=== PATIENT | female | born 1940 | race Caucasian/White ===

== ENCOUNTER 2019-10-16 22:37 | Emergency (ER) | payer MEDICARE, OTHER ==
[~2019-10-16] VITALS: Ht 162.6 cm; Wt 59.9 kg
[2019-10-16 22:52] VITALS: BP 176/77
[2019-10-16 23:41] LABS: Basophils # (auto) 0 uL; Basophils % (auto) 0.8 % (0.0-2.0); Eosinophils # (auto) 0.1 uL; Eosinophils % (auto) 1.2 % (0.0-7.0); Hematocrit 42.3 % (36.0-46.0); Hemoglobin 14.4 g/dL (12.2-16.2); Lymphocytes # (auto) 1.8 uL; Lymphocytes % (auto) 36.7 % (10.0-50.0); Mean Corpuscular Hemoglobin 31.9 pg (28.0-32.0); Mean Corpuscular Hgb Conc. 33.9 g/dL (32.0-36.0); Monocytes # (auto) 0.4 uL; Monocytes % (auto) 7.7 % (0.0-12.0); Neutrophils # (auto) 2.6 uL; Neutrophils % (auto) 53.6 % (37.0-80.0); Nucleated Red Blood Cells % 0.1 %; Platelet Count (auto) 236 10^3/uL (140-450); Red Cell Distribution Width 13.1 % (11.8-14.3); White Blood Cell 4.8 10^3/uL (4.4-10.8)
[2019-10-17 00:37] LABS: Albumin 4.3 g/dL (3.4-5.0); Calcium 9.9 mg/dL (8.5-10.1); Potassium 3.4 mmol/L (3.5-5.1)
[2019-10-17 00:41] LABS: BUN/Creatinine Ratio 24.1; Bilirubin, Total 0.5 mg/dL (0.2-1.0)
== END 2019-10-17 00:31 | disposition left against medical advice (07) ==
LOC: ER 22:37
DX: I10 Essential (primary) hypertension (principal); Z53.21 Procedure and treatment not carried out due to patient leaving prior to being seen by health care provider
CPT/HCPCS: 36415; 80053; 85025

== ENCOUNTER 2023-11-16 09:21 | Inpatient (IN) | payer MEDICARE ==
[~2023-11-16] VITALS: Ht 162.6 cm; Wt 60.2 kg
[2023-11-16 09:50] LABS: Basophils # (auto) 0 10 ^3/uL (0-0.2); Basophils % (auto) 0.9 % (0.0-2.0); Eosinophils # (auto) 0.1 10 ^3/uL (0-0.8); Eosinophils % (auto) 1.6 % (0.0-7.0); Hematocrit 43.6 % (36.0-46.0); Hemoglobin 14.5 g/dL (12.2-16.2); Lymphocytes # (auto) 1.2 10 ^3/uL (0.4-5.4); Lymphocytes % (auto) 33.7 % (10.0-50.0); Mean Corpuscular Hemoglobin 30.6 pg (28.0-32.0); Mean Corpuscular Hgb Conc. 33.2 g/dL (32.0-36.0); Mean Corpuscular Volume 92.4 fL (80.0-100.0); Monocytes # (auto) 0.3 10 ^3/uL (0-1.3); Monocytes % (auto) 10.1 % (0.0-12.0); Neutrophils # (auto) 1.8 10 ^3/uL (1.6-8.6); Neutrophils % (auto) 53.7 % (37.0-80.0); Nucleated Red Blood Cells % 0.2 %; Red Blood Cells 4.72 10^6/uL (4.0-5.20); White Blood Cell 3.4 10^3/uL (4.4-10.8)
[2023-11-16 10:14] LABS: INR 0.98 (0.9-1.15); Prothrombin Time 10.3 sec (9.3-11.8)
[2023-11-16 10:15] LABS: Alanine Aminotransferase 20 U/L (7-40); Alkaline Phosphatase 79 U/L (46-116); Calcium 10.4 mg/dL (8.5-10.1); Carbon Dioxide 28 mmol/L (20-30); Chloride 107 mmol/L (98-107); Glucose 102 mg/dL (74-106); Potassium 3.9 mmol/L (3.5-5.1)
[2023-11-16 10:16] LABS: Albumin 4.8 g/dL (3.2-4.8); Anion Gap 6 (5-15); Aspartate Aminotransferase 24 U/L (13-40); BUN/Creatinine Ratio 13.9 (10.0-20.0); Bilirubin, Total 0.6 mg/dL (0.2-1.0); Blood Urea Nitrogen 11 mg/dL (9-23); Sodium 141 mmol/L (136-145); Total Protein 7.7 g/dL (5.7-8.2)
[2023-11-16 12:51] LABS: Magnesium 2.3 mg/dL (1.6-2.6)
[2023-11-16] MEDS ORDERED: ACETAMINOPHEN 325 MG TAB PO ONE (15:00)
[2023-11-16] MEDS ORDERED: ASPirin 81 mg TAB PO ONE (15:00)
[2023-11-16] MEDS ORDERED: ERY05OO EACHEYE (15:42)
[2023-11-16] MEDS ORDERED: VALS1TAB57 PO (15:42)
[2023-11-16] MEDS ORDERED: LISI20TA56 PO (15:42)
[2023-11-16] MEDS ORDERED: HYDRX10T PO (15:42)
[2023-11-16] MEDS ORDERED: FLUT115A INH (15:42)
[2023-11-16] MEDS ORDERED: CLON0.1T PO (15:42)
[2023-11-16] MEDS ORDERED: METO25TA93 PO (15:42)
[2023-11-16] MEDS ORDERED: ACETAMINOPHEN 325 MG TAB PO PRN (15:45)
[2023-11-16] MEDS ORDERED: ALBUTEROL SULF 2.5 MG/0.5ML(0.5%) NEB SOLN NEB PRN (15:45)
[2023-11-16] MEDS ORDERED: hydrALAZINE HCL 20 MG/ML VL IV PRN (15:45)
[2023-11-16] MEDS ORDERED: MORPHINE SULFATE INJ 2 MG/ml SYRG IV PRN (15:45)
[2023-11-16] MEDS ORDERED: NITROGLYCERIN 0.4 MG SL TAB SL PRN (15:45)
[2023-11-16 16:26] VITALS: BP 116/69; PULSE 82; RESP 16; TEMP 98.3; O2SAT 95
[2023-11-16 17:02] LABS: LDL Cholesterol 111 mg/dL (< 100); Triglycerides 114 mg/dL (< 150)
[2023-11-16 17:03] LABS: Cholesterol 199 mg/dL (< 200); HDL Cholesterol 61 mg/dL (40-59)
[2023-11-16 17:27] VITALS: TEMP 97.3
[2023-11-16] MEDS ORDERED: cloNIDine HCL 0.1 MG TAB PO SCH (22:00)
[2023-11-16] MEDS ORDERED: hydrOXYzine HCL 10 MG TAB PO SCH (22:00)
[2023-11-17] MEDS ORDERED: LISINOPRIL 20 MG TAB PO SCH (10:00)
[2023-11-17] MEDS ORDERED: PATIENTS OWN MEDICATION (Metoprolol Succinate (Metoprolol Succinate Er) 1 TAB) PO SCH (10:00)
[2023-11-17] MEDS ORDERED: ENOXAPARIN SOD 40 MG/0.4 ML SYRINGE SC SCH (10:00)
[2023-11-17] MEDS ORDERED: NITROGLYCERIN 0.4 MG SL TAB SL ONE (10:00)
[2023-11-17] MEDS ORDERED: VALSARTAN 80 MG TAB PO SCH (10:00)
[2023-11-17] MEDS ORDERED: METOPROLOL SUCCINATE XL 50 MG TAB PO SCH (10:00)
== END 2023-11-16 20:20 | disposition left against medical advice (07) | DRG 311 ==
LOC: ER 09:21 → TELE 15:42
PROVIDERS: ADMIT Nurse Practitioner Family; ATTEND Nurse Practitioner Family
DX: I24.9 Acute ischemic heart disease, unspecified (principal); I10 Essential (primary) hypertension; J45.909 Unspecified asthma, uncomplicated; E78.5 Hyperlipidemia, unspecified; Z53.29 Procedure and treatment not carried out because of patient's decision for other reasons; Z88.6 Allergy status to analgesic agent; Z88.2 Allergy status to sulfonamides
CPT/HCPCS: 36415; 71045; 80053; 80061; 83735; 83880; 84443; 84484; 85025; 85610; 85730; 93005; G0378